=== PATIENT | female | born 1945 | race Caucasian/White ===

== ENCOUNTER → 2024-07-19 13:31 | Outpatient (REF) | payer OTHER, SELFPAY | LOC: WDC 13:31 | PROVIDERS: ATTENDING PHYSICIAN Internal Medicine Hematology & Oncology; FAMILY PHYSICIAN Family Medicine | DX: Z12.31 Encounter for screening mammogram for malignant neoplasm of breast (principal) | CPT/HCPCS: 77063; 77067 ==

== ENCOUNTER → 2025-07-22 11:17 | Outpatient (REF) | payer OTHER, SELFPAY | LOC: WDC 11:17 | PROVIDERS: ATTENDING PHYSICIAN Internal Medicine Hematology & Oncology; FAMILY PHYSICIAN Family Medicine | DX: Z12.31 Encounter for screening mammogram for malignant neoplasm of breast (principal); C50.212 Malignant neoplasm of upper-inner quadrant of left female breast | CPT/HCPCS: 77063; 77067 ==